=== PATIENT | male | born 1995 | race Caucasian/White ===

== ENCOUNTER 2019-07-03 05:02 | Emergency (ER) | payer OTHER ==
[2019-07-03 05:50] VITALS: BP 105/75; PULSE 67; TEMP 98.1; BMI 17.0
--- NOTE | 2019-07-03 05:56 | PDOC ---
Attending Attestation - Resident Resident Name: Gary Latham - ED Attending Attestation I have performed the following: I have examined & evaluated the patient, The case was reviewed & discussed with the resident, I agree w/resident's findings & plan - HPI HPI: 07/03/19 05:56 Pt comes with a toothache; In his right mandible the posterior teeth. Pt has a filling that may be coming out. Pt has no fever. He has a dental appt early next week No gingival swelling - Physicial Exam PE: 07/03/19 06:12 Afebrile VSS no submental nodes. TMs normal Pt has no abscess or swelling of buccal mucosa or gums. Rest of exam is normal. - Medical Decision Making 07/03/19 06:15 Home with amoxil and NSAIDS. Pt will be given amoxil, percocet and motrin here. Stable for d/c
[2019-07-03] MEDS ORDERED: AMOXICILLIN 500 MG CAPSULE (FP) PO ONE (05:57)
[2019-07-03] MEDS ORDERED: IBUPROFEN 600 MG TABLET (FP) PO ONE ×2 (05:57→06:04)
--- NOTE | 2019-07-03 06:02 | PDOC ---
History of Present Illness - General Chief Complaint: Toothache Stated Complaint: TOOTHACHE Time Seen by Provider: 07/03/19 05:56 History Source: Patient Exam Limitations: No Limitations - History of Present Illness Initial Comments: 07/03/19 06:06 24 yo male no pmh presents to the ED for tooth ache. Pt states the pain started yesterday, pain is sharp and persistent, denies F/C/N/V, denies redness or abscess to the location. Pain is located around the left bottom molars at the junction of the teeth and gums around where pt had cavities with fillings in the past. Pt took tylenol at home yesterday without relief of pain. Past History - Past Medical History Allergies/Adverse Reactions: Allergies Allergy/AdvReac Type Severity Reaction Status Date / Time No Known Allergies Allergy Verified 07/03/19 05:47 Home Medications: Ambulatory Orders Amoxicillin - [Amoxicillin 500mg Capsule -] 500 mg PO TID #21 capsule 07/03/19 Ibuprofen [Motrin -] 600 mg PO TID #21 tablet 07/03/19 - Psycho Social/Smoking Cessation Hx Smoking History: Never smoked Have you smoked in the past 12 months: No Information on smoking cessation initiated: No Hx Alcohol Use: No Drug/Substance Use Hx: No Review of Systems - Review of Systems Constitutional: No: Chills, Fever HEENTM: Yes: Other (toothache) Respiratory: No: Shortness of Breath Cardiac (ROS): No: Chest Pain ABD/GI: No: Constipated, Diarrhea, Nausea, Vomiting Integumentary: No: Change in Color, Erythema *Physical Exam - Vital Signs Last Vital Signs Temp Pulse Resp BP Pulse Ox 98.1 F 67 20 105/75 99 07/03/19 05:47 07/03/19 05:47 07/03/19 05:47 07/03/19 05:47 07/03/19 05:47 - Physical Exam General Appearance: Yes: Nourished, Appropriately Dressed. No: Apparent Distress HEENT: positive: EOMI, Other (no erythema or fluctuance to lateral lower teeth) Neck: positive: Supple. negative: Carotid bruit Respiratory/Chest: positive: Lungs Clear, Normal Breath Sounds Cardiovascular: positive: Regular Rhythm, Regular Rate Gastrointestinal/Abdominal: positive: Flat, Soft. negative: Pulsatile Mass, Distended, Guarding, Rebound, Tenderness Extremity: positive: Normal Capillary Refill, Normal Inspection Integumentary: positive: Normal Color, Dry, Warm. negative: Erythema, Pale, Bruising Neurologic: positive: Fully Oriented, Alert Medical Decision Making - Medical Decision Making 07/03/19 06:12 24 yo male no pmh presents to the ED for tooth ache. Pt states the pain started yesterday, pain is sharp and persistent, denies F/C/N/V, denies redness or abscess to the location. Pain is located around the left bottom molars at the junction of the teeth and gums around where pt had cavities with fillings in the past. Pt took tylenol at home yesterday without relief of pain. vitals WNL no erythema or abscess noted, no fluctuance pt give pain control in the ED and states he will follow up with PCP and Dentist Thursday Sent antibiotics to pharmacy Discharge - Discharge Information Problems reviewed: Yes Clinical Impression/Diagnosis: Toothache Condition: Stable Disposition: HOME - Admission No - Additional Discharge Information Prescriptions: Amoxicillin - [Amoxicillin 500mg Capsule -] 500 mg PO TID #21 capsule Ibuprofen [Motrin -] 600 mg PO TID #21 tablet - Follow up/Referral Referrals: Tamar Holland MD [Primary Care Provider] - - Patient Discharge Instructions Patient Printed Discharge Instructions: DI for Dental Pain Additional Instructions: Please call and see your Dentist within the next 48 hours. Take over the counter medication such as Ibuprofen as needed for pain. Take the antibiotic amoxicillin as prescribed and until completed. Return to the ER for new or concerning symptoms Thank you - Post Discharge Activity
[2019-07-03] MEDS ORDERED: AMOXICILLIN 500 MG CAPSULE (FP) ONE (06:03)
== END 2019-07-03 06:13 | disposition home or self-care (01) ==
LOC: JER 05:02
DX: K08.89 Other specified disorders of teeth and supporting structures (principal)
CPT/HCPCS: 99281-25

== ENCOUNTER 2021-04-24 10:54 | Emergency (ER) | payer OTHER ==
[2021-04-24 11:08] VITALS: BP 122/70; PULSE 105; TEMP 98.7; BMI 17.2
== END 2021-04-24 12:04 | disposition home or self-care (01) ==
LOC: JERFT 10:54
DX: L05.01 Pilonidal cyst with abscess (principal)
CPT/HCPCS: 99281-25

== ENCOUNTER 2021-08-26 14:47 | Emergency (ER) | payer OTHER ==
[2021-08-26 15:13] VITALS: BP 112/78; PULSE 101; TEMP 97.9; BMI 17.2
[2021-08-26] MEDS ORDERED: DIPHTH,PERTUSS(ACELL),TET 0.5 ML DISP.SYRIN IM ONE ×2 (15:42→15:47)
== END 2021-08-26 17:36 | disposition home or self-care (01) ==
LOC: JERFT 14:47
PROC: 0HQGXZZ Repair Left Hand Skin, External Approach (ICD-10-PCS; principal; 2021-08-26)
PROC: 3E0234Z Introduction of Serum, Toxoid and Vaccine into Muscle, Percutaneous Approach (ICD-10-PCS; 2021-08-26)
DX: S61.412A Laceration without foreign body of left hand, initial encounter (principal); W22.8XXA Striking against or struck by other objects, initial encounter
CPT/HCPCS: 12002-25; 73130-TC-LT-FY; 90471; 90715; 99284-25

== ENCOUNTER 2021-09-19 10:32 | Emergency (ER) | payer OTHER ==
[2021-09-19 10:51] VITALS: BP 111/63; PULSE 90; TEMP 98; BMI 16.5
== END 2021-09-19 11:45 | disposition home or self-care (01) ==
LOC: JERFT 10:32
DX: Z48.02 Encounter for removal of sutures (principal)
CPT/HCPCS: 99281-25

== ENCOUNTER 2022-04-10 10:39 | Emergency (ER) | payer OTHER ==
[2022-04-10 11:04] VITALS: BP 113/72; PULSE 99; RESP 18; TEMP 98.4; BMI 33.8
== END 2022-04-10 11:55 | disposition home or self-care (01) ==
LOC: JERFT 10:39
DX: L03.317 Cellulitis of buttock (principal)
CPT/HCPCS: 99283-25

== ENCOUNTER 2024-08-18 10:57 | Day surgery (SDC) | payer OTHER ==
[2024-08-18 11:15] VITALS: BMI 15.7
[2024-08-18 12:30] LABS: ABSOLUTE IMMATURE GRANULOCYTES 0.09 x10^3/uL (0.0-0.031); BASOPHILS # 0.03 x10^3/uL (0.01-0.08); EOSINOPHIL % 0.4 % (0.8-7.0); EOSINOPHILS # 0.03 x10^3/uL (0.04-0.54); HEMATOCRIT 40.1 % (40.1-51.0); HEMOGLOBIN 13.6 g/dL (13.7-17.5); MCHC 33.9 g/dl (32.3-36.5); MEAN CELL VOLUME 80.2 fl (79.0-92.2); MEAN PLT VOLUME 9.5 fl (9.4-12.4); MONOCYTE # 0.52 x10^3/uL (0.30-0.82); MONOCYTE % 7.3 % (5.3-12.2); PLATELET COUNT # 247 x10^3/uL (163-337)
[2024-08-18 12:35] LABS: INR 1.16 (0.83-1.09); PROTHROMBIN TIME (PATIENT) 12.8 SEC (9.7-13.0)
[2024-08-18 12:58] LABS: POTASSIUM 4.1 mmol/L (3.5-5.1)
[2024-08-18 12:59] LABS: CALCIUM 9.4 mg/dL (8.5-10.1)
[2024-08-18 13:00] LABS: ALBUMIN 3.8 g/dl (3.4-5.0); BLOOD UREA NITROGEN 12.6 mg/dL (7-18)
[2024-08-18 13:03] LABS: CREATININE 0.7 mg/dL (0.55-1.3)
[2024-08-18 13:05] LABS: BILIRUBIN,TOTAL 0.8 mg/dL (0.2-1); TOT PROT 7.4 g/dl (6.4-8.2)
[2024-08-18] MEDS ORDERED: PIPERACILLIN/TAZOB 4.5 GM 4.5 GM/100 ML BAG IVPB ONE (13:27)
[2024-08-18] MEDS: PIPERACILLIN/TAZOB 4.5 GM 4.5 GM in DEXTROSE 5%-WATER 100 ML IVPB ONE (13:39)
[2024-08-18 14:12] LABS: ERYTHROCYTE SEDIMENTATION RATE 3 mm/hr (0-10)
[2024-08-18] MEDS ORDERED: MIDAZOLAM HCL 2 MG/2 ML SINGLE DOSE VIAL ONE (15:59)
[2024-08-18] MEDS ORDERED: PROPOFOL 20 ML ONE (15:59)
[2024-08-18] MEDS ORDERED: SEVOFLURANE 250 ML BTL ONE (15:59)
[2024-08-18] MEDS ORDERED: LIDOCAINE HCL/PF 2% SDV 5ML VIAL ONE (16:03)
[2024-08-18] MEDS ORDERED: KETOROLAC TROMETHAMINE 30 MG/1 ML VIAL ONE ×2 (16:03→17:14)
[2024-08-18] MEDS ORDERED: ONDANSETRON 4 MG/2 ML VIAL ONE (16:03)
[2024-08-18] MEDS ORDERED: DEXAMETHASONE SOD PHOSPHATE 4 MG/1 ML VIAL ONE (16:03)
[2024-08-18] MEDS ORDERED: oxyCODONE HCL 5 MG TABLET PO PRN (16:52)
[2024-08-18] MEDS ORDERED: ONDANSETRON 4 MG/2 ML VIAL IVPUSH PRN ×2 (16:52→17:14)
[2024-08-18] MEDS ORDERED: LACTATED RINGERS SOLUTION 1,000 ML IV SCH (17:00)
[2024-08-18] MEDS ORDERED: ACETAMINOPHEN 1000 MG/100 ML BAG IVPB PRN (17:15)
[2024-08-18] MEDS ORDERED: PIPERACILLIN/TAZOB 3.375 GM 3.375 GM in DEXTROSE 5%-WATER - 50 ML IVPB SCH ×3 (18:00)
[2024-08-18] MEDS: PSYLLIUM 5.85 GM PACKET PO SCH (19:01)
[2024-08-18] MEDS: PIPERACILLIN/TAZOB 3.375 GM 50 ML IVPB SCH (19:31)
[2024-08-18] MEDS: oxyCODONE HCL 5 MG TABLET PO PRN (20:29)
[2024-08-18] MEDS ORDERED: DOCUSATE SODIUM 100 MG CAPSULE (FP) PO SCH (22:00)
[2024-08-19] MEDS: oxyCODONE HCL 5 MG TABLET PO ONE (00:13)
[2024-08-19 06:18] VITALS: RESP 18
[2024-08-19] MEDS ORDERED: IBUPROFEN 600 MG TABLET (FP) PO SCH (07:45)
[2024-08-19] MEDS: IBUPROFEN 600 MG TABLET (FP) PO SCH (08:38)
[2024-08-19 09:48] LABS: HEMATOCRIT 40.3 % (40.1-51.0); MCHC 34.7 g/dl (32.3-36.5); PLATELET COUNT # 253 x10^3/uL (163-337); RDW 12.5 % (11.9-15.3)
[2024-08-19 10:01] LABS: POTASSIUM 3.6 mmol/L (3.5-5.1)
[2024-08-19 10:05] VITALS: TEMP 97.9
[2024-08-19 10:20] LABS: CALCIUM 9.1 mg/dL (8.5-10.1)
[2024-08-19 10:21] LABS: ALBUMIN 3.5 g/dl (3.4-5.0)
[2024-08-19 10:24] LABS: CREATININE 0.8 mg/dL (0.55-1.3); PHOSPHOROUS 3.8 mg/dL (2.5-4.9)
[2024-08-19 12:00] VITALS: BP 110/61; PULSE 86
== END 2024-08-19 11:38 | disposition home or self-care (01) ==
LOC: JER 10:57 → JASUSAT 17:17 → SUATTDRO 17:17 → J5S 17:49 → JASUSAT 08-19 11:38
PROVIDERS: ATTEND Internal Medicine
PROC: 3E033NZ Introduction of Analgesics, Hypnotics, Sedatives into Peripheral Vein, Percutaneous Approach (ICD-10-PCS; 2024-08-18)
PROC: 3E033NZ Introduction of Analgesics, Hypnotics, Sedatives into Peripheral Vein, Percutaneous Approach (ICD-10-PCS; 2024-08-18)
PROC: 3E033NZ Introduction of Analgesics, Hypnotics, Sedatives into Peripheral Vein, Percutaneous Approach (ICD-10-PCS; 2024-08-18)
PROC: 3E033NZ Introduction of Analgesics, Hypnotics, Sedatives into Peripheral Vein, Percutaneous Approach (ICD-10-PCS; 2024-08-18)
PROC: 3E03329 Introduction of Other Anti-infective into Peripheral Vein, Percutaneous Approach (ICD-10-PCS; 2024-08-18)
PROC: 3E033NZ Introduction of Analgesics, Hypnotics, Sedatives into Peripheral Vein, Percutaneous Approach (ICD-10-PCS; principal; 2024-08-18 14:00)
PROC: 3E033NZ Introduction of Analgesics, Hypnotics, Sedatives into Peripheral Vein, Percutaneous Approach (ICD-10-PCS; 2024-08-18 14:00)
DX: K61.0 Anal abscess (principal)
CPT/HCPCS: 36415; 80053; 83735; 84100; 85025; 85027; 85610; 85651; 85730; 86140; 86850; 86900; 86901; 87070; 87076; 87205; 93005; 93010; 94760; 99284-25